=== PATIENT | male | born 1965 | race Caucasian/White ===

== ENCOUNTER 2018-07-10 10:57 | Emergency (ER) | payer SELFPAY ==
[2018-07-10] MEDS ORDERED: Benzonatate 100 MG CAP ONE (11:25)
[2018-07-10 11:37] LABS: #Basophils 0.1 thou/uL (0.0-0.2); #Eosinphils 0.2 thou/uL (0.0-0.7); #Lymphocytes 1.7 thou/uL (1.20-3.40); #Monocytes 1.2 thou/uL (0.11-0.59); #Neutrophils 6.7 thou/uL (1.40-6.50); %Basophils 1.1 % (0.0-1.0); %Eosinophils 1.6 % (0.0-10.0); %Lymphocytes 17.6 % (21.0-51.0); %Monocytes 11.8 % (0.0-10.0); %Neutrophils 67.9 % (42.0-75.0); Hemoglobin 14.4 g/dL (14.0-18.0); Mean Corpuscular Hemoglobin 27.9 pg (27.0-31.0); Mean Corpuscular Volume 87.2 fL (78.0-98.0); Mean Platelet Volume 7.1 fL (7.4-10.4); Platelet Count 254 thou/uL (130-400); RBC Distribution Width 12.7 % (11.5-14.5); Red Blood Cell (RBC) Count 5.16 mill/uL (4.70-6.10); White Blood Cell (WBC) Count 9.9 thou/uL (4.8-10.8)
[2018-07-10 11:51] LABS: ALT (SGPT) 31 U/L (8-55); AST (SGOT) 21 U/L (5-34); Albumin 4.2 g/dL (3.5-5.0); Alkaline Phosphatase 85 U/L (40-150); Anion Gap 16 mmol/L (10-20); BUN (Urea Nitrogen) 13 mg/dL (8.4-25.7); Bilirubin, Total 0.6 mg/dL (0.2-1.2); Calc. Creatinine Clearance 0 mL/min (70-130); Calcium 9.8 mg/dL (7.8-10.44); Carbon Dioxide 25 mmol/L (22-29); Chloride 102 mmol/L (98-107); Estimated GFR-MDRD 68; Glucose 115 mg/dL (70-105); Potassium 3.5 mmol/L (3.5-5.1); Protein, Total 7.2 g/dL (6.0-8.3); Sodium 139 mmol/L (136-145)
[2018-07-10] MEDS ORDERED: methylPREDNISolone Sod Succ/PF 125 MG/2 ML VIAL ONE (12:13)
[2018-07-10] MEDS ORDERED: Azithromycin 250 MG TAB ONE (12:13)
--- NOTE | 2018-07-10 19:00 | RAD ---
CHEST TWO VIEWS: 07/10/18 No prior films were available for comparison. The heart is borderline in size but there is no congestive change or pleural effusion. No focal pulmo nary infiltrate was seen to allow the diagnosis of pneumonia. The mediastinum appears unremarkable. IMPRESSION: No acute thoracic finding. POS: HOME
== END 2018-07-10 12:29 | disposition home or self-care (01) ==
LOC: BURERS 10:57
DX: J20.9 Acute bronchitis, unspecified (principal); E03.9 Hypothyroidism, unspecified; E78.5 Hyperlipidemia, unspecified; J44.9 Chronic obstructive pulmonary disease, unspecified; F17.220 Nicotine dependence, chewing tobacco, uncomplicated; Z79.899 Other long term (current) drug therapy; Z79.51 Long term (current) use of inhaled steroids
CPT/HCPCS: 71046; 80053; 83880; 85025; 87804; 94640; 96374; J2930; J7620

== ENCOUNTER 2020-08-30 14:24 | Outpatient (CLI) | payer MEDICARE | END 2020-08-30 14:25 | disposition home or self-care (01) | LOC: BURRAD 14:24 | PROVIDERS: ATTEND Family Medicine | DX: M25.561 Pain in right knee (principal); M25.562 Pain in left knee; M17.0 Bilateral primary osteoarthritis of knee ==

== ENCOUNTER 2022-02-09 15:34 | Outpatient (CLI) | payer MEDICARE | END 2022-02-09 15:35 | disposition home or self-care (01) | LOC: BURRAD 15:34 | PROVIDERS: ATTEND Family Medicine | DX: M47.22 Other spondylosis with radiculopathy, cervical region (principal) | CPT/HCPCS: 72040 ==